=== PATIENT | female | born 1950 | race Caucasian/White ===

== ENCOUNTER → 2021-07-03 | Outpatient (CLI) | payer OTHER, MEDICARE ==
[~2021-07-03] VITALS: Ht 172.7 cm; Wt 65.8 kg
[~2021-07-03] MED LIST: DYRENIUM50 MG PO; FLUOXETINE HCL60 MG PO; KLONOPIN1 MG PO; LEVO-T50 MCG PO; LIPITOR10 MG PO; LUNESTA1 MG PO; NORCO 5-325 TA1 EACH PO; PROZAC 20 MG20 MG PO
[2021-07-03 10:39] VITALS: BP 124/76
--- NOTE | 2021-07-03 10:54 | NUR ---
Pain Clinic Assessment: 1. History of Osteoarthritis: LUMBAR SPINE KNEES History of Rheumatoid Arthritis: 2. Height: 5 ft. 8 in. 172.7 cm. Weight: 145.0 lb. oz. 65.772 kg. Patient's BMI: 22.1 3. Vital Signs: BP: 124/76 Pulse: 83 Resp: 14 Temp: 02 Sat: 95 ECG Mon: 4. Pain Intensity: 5 TO 10 5. Fall Risk: Dizziness: N Needs help standing or walking: N Fallen in the last 3 months: Y Fall risk comments: 6. Patient on Blood Thinner: None 7. History of Hypertension: Y 8. Opioid Therapy greater than 6 weeks: N Opiate Contract Signed: 9. Risk Assessment Tool Provided: LOW-1 10. Functional Assessment Tool: 54/70 11. Recreational Drug Use: Never Drug Type: Tobacco Use: Never Smoker Tobacco Type: Amount or Packs/day: How Many Years: Alcohol Use: Yes Frequency: Daily Quant: 2
--- NOTE | 2021-07-09 13:46 | HPC ---
[facility] [place] [address] PAIN MANAGEMENT CONSULTATION Name: JOSUE ALICEA Room #: REG RADHA Angy#: [id number] Admission: 07/03/21 Attend Phys: Marlon Jon DO Discharge: Date of : 54 Report #: [id number] THIS REPORT FOR: cc: Dago Jenkins Donald L. DO Johnson, James E. DO ~ DATE OF SERVICE: 07/03/2021 REFERRING PHYSICIAN: Leandra Molina NP CHIEF COMPLAINT: Low back pain, left lower extremity pain with paresthesias. HISTORY OF PRESENT ILLNESS: As you know, the patient is a 70-year-old female reporting acute onset of low back pain, left lower extremity pain with paresthesias, presenting on 02/22/2021. The patient denies injury or trauma. She states she has had symptoms that have been on and off for years, but it began spontaneously and resolved spontaneously. She states that in 02/2021, her pain began to intensify. She sought evaluation with Dr. Jenkins for this back and leg pain. She was prescribed gabapentin and meloxicam, but did not trial either of the medications as she "does not like taking medications." She was given a Medrol Dosepak. Again she did not take the medication as she was concerned of related side effects. Due to lack of any improvement in symptoms spontaneously and her unwillingness to take medication management, she underwent imaging of the lumbar spine. This prompted a referral to Neurosurgery. The patient was seen by nurse practitioner, Leandra Molina on 06/05/2021 and was advised to trial conservative treatment before looking toward surgical options such as epidural injections. This has led to referral to our clinic to discuss those options of treatment. The patient reports that her pain is steady. She describes the pain as aching. She places current pain score 5/10. Daily average at 7/10. Worst pain has been 10/10. The patient states pain is exacerbated with sleeping and doing certain activities. Pain is improved with repositioning. She states that her pain began while she was sitting at work without any injury or trauma. She took some Advil, which did not provide much in the way of improvement. She reports pain that begins in low back, radiates down the left leg with numbness and tingling. She has been referred to our service to discuss interventional treatment options to address suspected lumbar radiculopathy. PAST MEDICAL HISTORY: 1. Hypertension. 2. History of gallbladder disease. 3. Hypothyroidism. 4. Dyslipidemia. PAST SURGICAL HISTORY: 1. [place] [address] PAIN MANAGEMENT CONSULTATION Name: MAUDE ALICEAPool Cornejo Room #: REG [facility] Angy#: [id number] Admission: 07/03/21 Attend Phys: Marlon Jon DO Discharge: Date of : 54 Report #: [id number] 2. Foot surgery. SOCIAL HISTORY: The patient denies tobacco. Denies IV or illicit drug use. Admits to alcoholic beverage per day. The patient is a government contractor. She is working, neither receiving workmen's compensation nor is she trying to obtain disability benefits. She is not in litigation in regards to pain. She is unaccompanied at today's visit. REVIEW OF SYSTEMS: Positive only for chronic sinus problems, depression, insomnia, low back pain, left lower extremity pain with paresthesias, heat and cold intolerance secondary to hypothyroidism and dyslipidemia as well as some reflux. All other review of systems negative per 12-point review of systems other than those listed in history of present illness. Pain impact score 54 of 70, severe interference of daily activities secondary to pain. ALLERGIES: No known drug allergies. CURRENT MEDICATIONS: Atorvastatin 20 mg once a day, TRIAMTERENE 100 mg once a day, levothyroxine 50 mcg per day, fluoxetine 20 mg b.i.d. IMAGING: MRI of the lumbar spine obtained on 06/03/2021 shows multilevel spondylosis, most prominent at L4-L5. There is moderate to severe central canal stenosis with subarticular recess narrowing and impingement of the descending L5 nerve roots bilaterally. PQRS: The patient has known arthritic changes of lumbar spine, bilateral knees. No rheumatoid arthritis. She is placing pain intensity anywhere from 5-10/10. She is not a fall risk, but has had a fall in last 3 months, apparently tripping over objects at home. This has been rectified. She is not on blood thinners, but is treated for hypertension. She is on no opioids, has a low opioid addiction potential based on assessment. Tool pain impact is 54/70, severe interference in daily activities secondary to pain. PHYSICAL EXAMINATION: VITAL SIGNS: Blood pressure 124/76, pulse is 83, respiratory rate 14 and unlabored. The patient is 95% on room air. Height 5 feet 8 inches tall, weight 145 pounds, BMI calculated 22.1. GENERAL: Well-developed, well-nourished, well-hydrated 70-year-old female appearing stated age, pain is rated anywhere from 5-10/10. HEENT: Normocephalic, atraumatic. Pupils equal, round and responsive to light. Extraocular muscles are intact. Speech is fluent. She is deemed a good historian. She is wearing a mask in compliance with COVID-19 regulations. LUNGS: Appear clear. No wheeze, rhonchi, or rales. CARDIOVASCULAR: Regular. No appreciable gallop, no rub. ABDOMEN: Soft. EXTREMITIES: Show no clubbing, no cyanosis. No appreciable edema. [facility] [address] [place] [address] PAIN MANAGEMENT CONSULTATION Name: MAUDE ALICEAPool Cornejo [id number] Admission: 07/03/21 Attend Phys: Marlon Jon DO Discharge: Date of : 54 Report #: [id number] MUSCULOSKELETAL: Lower extremity strength equal and symmetrical 5/5, intact to light touch from L1 through S2 dermatomes. Seated straight leg raising negative. Supine straight leg raising positive on the left. Aruna's test is negative. Modified Gaenslen's positive for axial low back pain. Deep tendon reflexes 2+/4 at patella and Achilles. She is able to toe walk, heel walk without difficulty. Gait is steady and fluid. Lumbar provocation testing is met with slight increase in axial back pain. ASSESSMENT: 1. Symptomatic lumbar radiculopathy. 2. Severe central canal stenosis of lumbar spine. 3. 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 4. Lumbar degeneration. 5. Chronic intractable pain. PLAN: 1. Based on today's physical exam, the history the patient provides, the distribution the patient has based pain on as well as the descriptors she uses in regards to symptoms, likely source of the patient's pain is lumbar radiculopathy. The patient had a long discussion today about the treatment options to address lumbar radiculopathy after we spent 20 minutes of time reviewing the patient's MRI and correlating the MRI findings to her current condition. After that discussion, the following was discussed as treatment options. We discussed physical therapy, stretching exercises, core strengthening and a concerted effort at improving exercise routine as a treatment course. We discussed medication management utilizing neuropathic pain medications such as amitriptyline, nortriptyline, Cymbalta, Lyrica or gabapentin. We discussed lumbar epidural injections under fluoroscopic guidance for which the patient was referred to our clinic. We also discussed with the patient surgical options such as a spinal cord stimulator and a traditional surgical approach. After reviewing risks and benefits of all proposed treatment options, the patient chose to discuss further with her Neurosurgery team as she "wants the condition fixed". 2. The patient and I did discuss the possibility of adding a neuropathic medication to her list of medications. She is resistant to make any adjustments in medication due to the potential side effects. We discussed with the patient that we would start low and titrate up to an efficacious level reducing the potential side effects. She will consider this option, but does not wish to initiate any medications at this time. 3. We did offer to the patient a lumbar epidural injection under fluoroscopic guidance, for which the patient was referred to our clinic. She does wish to discuss further with the neurosurgery team a potential of "fix versus a bandage effect." We will be available to see the patient back in followup visit. She does wish to undergo that requested epidural injection. [address] [address] PAIN MANAGEMENT CONSULTATION Name: DEANNEJOSUE R Room #: REG CLJosefa Travis#: [id number] Admission: 07/03/21 Attend Phys: Marlon Jon DO Discharge: Date of : 54 Report #: [id number] 4. We wish to thank nurse practitioner, Leandra Molina for the opportunity to see the patient in consultation. We will keep you apprised of response to treatment if she does choose to undergo treatment for her lumbar radiculopathy secondary to the central canal and lateral recess stenosis. Again, we wish to thank you for the opportunity to see the patient in consultation. <ELECTRONICALLY SIGNED> By: Marlon Jon DO 07/09/21 [id number] Marlon Jon DO /nt
== END ==
LOC: PAIN 07:05
PROVIDERS: ATTEND Anesthesiology Pain Medicine
DX: G89.29 Other chronic pain (principal); M47.26 Other spondylosis with radiculopathy, lumbar region; M48.061 Spinal stenosis, lumbar region without neurogenic claudication; M79.662 Pain in left lower leg; I10 Essential (primary) hypertension; E03.9 Hypothyroidism, unspecified; E78.5 Hyperlipidemia, unspecified; Z90.49 Acquired absence of other specified parts of digestive tract; Z79.899 Other long term (current) drug therapy